=== PATIENT | female | born 1930 | race Caucasian/White ===

== ENCOUNTER 2016-10-13 12:02 | Day surgery (SDC) | payer OTHER ==
[~2016-10-13] VITALS: Ht 147.3 cm; Wt 52.0 kg
[~2016-10-13 12:02] MED LIST: ADVAIR 250/501 DISK IH; ATIVAN0.5 MG PO; CATAPRES0.1 MG PO; FOLIC ACID1 MG PO; LEVO-T112 MCG PO; LO-DOSE ASPIRIN81 M2 PO; NORVASC2.5 MG PO; PREDNISONE2.5 MG PO; PRESERVISION A1 EAC2 PO; RENO CAPS SOFTGE1 MG PO; SENOKOT,SENN1 TABLET PO; TOPROL XL25 MG PO; ULTRAM50 MG PO; VENTOLIN HFA18 GM IH; VITAMIN A8000 UNIT PO; ZANTAC150 MG PO; ZYLOPRIM100 MG PO
[2016-10-13 13:05] VITALS: BP 136/58
[2016-10-13 13:19] LABS: CHLORIDE 102 mEq/L (99-109); POTASSIUM 5.1 mEq/L (3.7-5.4); SODIUM 142 mEq/L (136-147)
[2016-10-13 13:20] LABS: GLUCOSE 87 mg/dL (70-99)
[2016-10-13 13:22] LABS: ANION GAP 15 MEQ/L (2-14)
[2016-10-13 13:24] LABS: GFR ESTIMATE (CALCULATED) 8 mL/min/
[2016-10-13 13:25] LABS: UREA NITROGEN (BUN) 55 mg/dL (9-23)
[2016-10-13 14:30] LABS: METH RESISTANT S AUREUS PCR NEGATIVE (NEGATIVE)
[2016-10-13 14:35] LABS: PROBE CHECK PASS; SPECIMEN PROCESSING CONTROL PASS
[2016-10-13 16:27] VITALS: BP 127/62
[2016-10-13 17:00] VITALS: BP 140/74
== END 2016-10-13 17:08 | disposition home or self-care (01) ==
LOC: SDC 12:02
PROVIDERS: Surgery Plastic and Reconstructive Surgery
DX: T81.31XA Disruption of external operation (surgical) wound, not elsewhere classified, initial encounter (principal); I12.0 Hypertensive chronic kidney disease with stage 5 chronic kidney disease or end stage renal disease; J44.9 Chronic obstructive pulmonary disease, unspecified; N18.6 End stage renal disease; J45.909 Unspecified asthma, uncomplicated; Z99.2 Dependence on renal dialysis; K21.9 Gastro-esophageal reflux disease without esophagitis; E03.9 Hypothyroidism, unspecified; M10.9 Gout, unspecified; Z88.0 Allergy status to penicillin; Z79.82 Long term (current) use of aspirin; Z79.899 Other long term (current) drug therapy; Z87.891 Personal history of nicotine dependence
CPT/HCPCS: 80048; 87641; J0690; J3010; J7050

== ENCOUNTER 2017-12-15 09:59 | Inpatient (IN) | payer OTHER ==
[~2017-12-15] VITALS: Ht 149.9 cm; Wt 56.0 kg
[~2017-12-15 09:59] MED LIST changes: -ADVAIR 250/501 DISK IH; +ADVAIR 500/501 DISK IH; -LEVO-T112 MCG PO; +LEVO-T150 MCG PO; +PROAIR RESPICL90 MCG IH; +SENNA8.6 MG PO; -SENOKOT,SENN1 TABLET PO; -VENTOLIN HFA18 GM IH
[2017-12-15 10:48] LABS: COMMENTS - BLOOD GASES +C; DEVICE NC; O2 FLOW 2 L/MIN; SITE RB; TOTAL RESP RATE 28 resp/min
[2017-12-15 10:49] LABS: BICARBONATE 30.6 mEq/L (22-26); CARBOXY HGB 1.9 % (0-5); METHEMOGLOBIN 1.3 % (0-1.5); O2 SATURATION (CALCULATED) 98.7 % (95-99); PCO2 43 mm Hg (35-45); PO2 103 mm Hg (80-100); pH 7.46 (7.35-7.45)
[2017-12-15 10:49] LABS: BASOPHIL (%) 0.5 % (0-1); BASOPHIL COUNT 0.1 K/uL (0-0.1); EOSINOPHIL COUNT 0.4 K/uL (0-0.3); HEMATOCRIT 30.7 % (36.0-46.0); HEMOGLOBIN 9.4 G/DL (11.9-15.5); IMMATURE GRANULOCYTE (%) 0.8 % (0.0-0.7); LYMPHOCYTE (%) 4.2 % (15-42); LYMPHOCYTE COUNT 0.8 K/uL (1.0-2.8); MCH 32.5 PG (29.0-34.0); MCHC 30.6 G/DL (30.0-36.0); MCV 106.2 FL (83-99); MONOCYTE (%) 7.1 % (3-12); MONOCYTE COUNT 1.4 K/uL (0-0.8); NEUTROPHIL (%) 85.4 % (45-76); NEUTROPHIL COUNT 17.1 K/uL (1.8-6.4); PLATELET COUNT 356 K/uL (156-360); RBC DIS.WIDTH-CV 16.5 % (11.8-14.6); RBC DIS.WIDTH-SD 63.1 % (39-53); RED BLOOD COUNT 2.89 M/uL (3.80-5.20)
[2017-12-15 10:50] LABS: BASE EXCESS 6.1 mEq/L (-3 to +3)
[2017-12-15 10:59] LABS: ALBUMIN 3.3 g/dL (3.2-4.8)
[2017-12-15 11:00] LABS: CHLORIDE 99 mEq/L (99-109); POTASSIUM 4.9 mEq/L (3.7-5.4); SODIUM 142 mEq/L (136-147)
[2017-12-15 11:02] LABS: GLUCOSE 122 mg/dL (70-99); TOTAL PROTEIN 6.3 g/dL (6.4-8.3)
[2017-12-15 11:04] LABS: TOTAL BILIRUBIN 0.5 mg/dL (0.0-1.0)
[2017-12-15 11:05] LABS: ALKALINE PHOSPHATASE 126 IU/L (3-129)
[2017-12-15 11:06] LABS: GFR ESTIMATE (CALCULATED) 9 mL/min/
[2017-12-15 11:07] LABS: AST (GOT) 25 IU/L (2-34); UREA NITROGEN (BUN) 42 mg/dL (9-23)
[2017-12-15 11:09] LABS: ALT (GPT) 33 IU/L (3-49); TROP-I INTERPRETATION NEGATIVE; TROPONIN-I 0.06 ng/mL (0.0-0.30)
[2017-12-15] MEDS ORDERED: CELEXA10 MG PO (12:09)
[2017-12-15] MEDS ORDERED: MIRALAX17 GM PO (12:12)
[2017-12-15] MEDS ORDERED: RENVELA800 MG PO (12:13)
[2017-12-15] MEDS ORDERED: VELPHORO500 MG PO (12:14)
[2017-12-15] MEDS ORDERED: TYLENOL325 M2 PO (12:15)
[2017-12-15] MEDS ORDERED: PRILOSEC20 MG PO (12:15)
[2017-12-15] MEDS ORDERED: ALBUTEROL2.5 MG/0.5 IH (12:18)
[2017-12-15] MEDS ORDERED: ENULOSE10 GM/15 M PO (12:20)
[2017-12-15] MEDS ORDERED: FLEET ENEMA EX230 ML PR (12:22)
[2017-12-15 19:00] VITALS: BP 129/71
[2017-12-16] VITALS (7 sets, daily range): BP systolic 129–167; BP diastolic 58–81
[2017-12-16 05:16] LABS: HEMATOCRIT 27.6 % (36.0-46.0); HEMOGLOBIN 8.3 G/DL (11.9-15.5); MCH 32.7 PG (29.0-34.0); MCHC 30.1 G/DL (30.0-36.0); MCV 108.7 FL (83-99); PLATELET COUNT 294 K/uL (156-360); RBC DIS.WIDTH-CV 16.4 % (11.8-14.6); RBC DIS.WIDTH-SD 63.2 % (39-53); RED BLOOD COUNT 2.54 M/uL (3.80-5.20); WHITE BLOOD COUNT 14.9 K/uL (4.1-10.2)
[2017-12-16 05:54] LABS: CHLORIDE 102 MEQ/L (99-109); GLUCOSE 165 mg/dL (70-99); MAGNESIUM 2.4 mg/dl (1.3-2.7); PHOSPHORUS 3.4 mg/dL (2.5-4.9); POTASSIUM 4.9 MEQ/L (3.7-5.4); SODIUM 142 MEQ/L (136-147); UREA NITROGEN (BUN) 21 mg/dL (9-23)
[2017-12-16 05:55] LABS: BASOPHIL (%) 0.3 % (0-1); EOSINOPHIL (%) 0.1 % (0-5); IMMATURE GRANULOCYTE (%) 0.9 % (0.0-0.7); LYMPHOCYTE (%) 2.9 % (15-42); LYMPHOCYTE COUNT 0.4 K/uL (1.0-2.8); MONOCYTE (%) 0.7 % (3-12); MONOCYTE COUNT 0.1 K/uL (0-0.8); NEUTROPHIL (%) 95.1 % (45-76); NEUTROPHIL COUNT 14.1 K/uL (1.8-6.4); PLAT.SUFFICIENCY ADEQUATE
[2017-12-16 06:47] LABS: GFR ESTIMATE (CALCULATED) 16 mL/min/; VANCOMYCIN, TROUGH 9.9 MCG/ML (10-20)
[2017-12-17 05:41] VITALS: BP 169/59
[2017-12-17 05:52] LABS: HEMATOCRIT 28.5 % (36.0-46.0); HEMOGLOBIN 8.7 G/DL (11.9-15.5); MCH 32.5 PG (29.0-34.0); MCHC 30.5 G/DL (30.0-36.0); MCV 106.3 FL (83-99); NRBC (%) 0.1 /100 WBC (0-0); PLATELET COUNT 329 K/uL (156-360); RBC DIS.WIDTH-CV 16.4 % (11.8-14.6); RBC DIS.WIDTH-SD 63.8 % (39-53); RED BLOOD COUNT 2.68 M/uL (3.80-5.20); WHITE BLOOD COUNT 19.6 K/uL (4.1-10.2)
[2017-12-17 06:13] LABS: CHLORIDE 99 MEQ/L (99-109); GLUCOSE 148 mg/dL (70-99); SODIUM 139 MEQ/L (136-147)
[2017-12-17 06:14] LABS: CREATININE 4.3 MG/DL (0.6-1.3); GFR ESTIMATE (CALCULATED) 10 mL/min/; MAGNESIUM 2.9 mg/dl (1.3-2.7); UREA NITROGEN (BUN) 41 mg/dL (9-23)
[2017-12-17 08:00] VITALS: BP 165/77
[2017-12-17 12:00] VITALS: BP 174/82
[2017-12-17 16:00] VITALS: BP 171/79
[2017-12-17 21:00] VITALS: BP 160/75
[2017-12-17 23:45] VITALS: BP 154/68
[2017-12-18 04:52] VITALS: BP 123/54
[2017-12-18 08:08] LABS: HEMATOCRIT 27.6 % (36.0-46.0); HEMOGLOBIN 8.8 G/DL (11.9-15.5); MCH 32.6 PG (29.0-34.0); MCHC 31.9 G/DL (30.0-36.0); MCV 102.2 FL (83-99); NRBC (%) 0.1 /100 WBC (0-0); PLATELET COUNT 371 K/uL (156-360); RBC DIS.WIDTH-CV 16.6 % (11.8-14.6); RBC DIS.WIDTH-SD 61.4 % (39-53); WHITE BLOOD COUNT 17.6 K/uL (4.1-10.2)
[2017-12-18 08:31] LABS: CHLORIDE 97 MEQ/L (99-109); GLUCOSE 168 mg/dL (70-99); POTASSIUM 5.1 MEQ/L (3.7-5.4); SODIUM 135 MEQ/L (136-147)
[2017-12-18 08:32] LABS: CREATININE 5.3 MG/DL (0.6-1.3); GFR ESTIMATE (CALCULATED) 8 mL/min/; MAGNESIUM 2.4 mg/dl (1.3-2.7); UREA NITROGEN (BUN) 62 mg/dL (9-23)
[2017-12-18 18:06] VITALS: BP 133/70
[2017-12-18 19:53] VITALS: BP 143/66
[2017-12-19] VITALS: BP 161/72
[2017-12-19 06:15] VITALS: BP 146/78
[2017-12-19 08:47] VITALS: BP 145/75
[2017-12-19 09:45] LABS: BASOPHIL (%) 0.1 % (0-1); EOSINOPHIL (%) 0 % (0-5); HEMATOCRIT 28.3 % (36.0-46.0); HEMOGLOBIN 8.9 G/DL (11.9-15.5); LYMPHOCYTE (%) 6.6 % (15-42); MCH 32.8 PG (29.0-34.0); MCHC 31.4 G/DL (30.0-36.0); MCV 104.4 FL (83-99); MONOCYTE (%) 5.4 % (3-12); MONOCYTE COUNT 0.8 K/uL (0-0.8); NEUTROPHIL (%) 84.9 % (45-76); NEUTROPHIL COUNT 12.3 K/uL (1.8-6.4); NRBC (%) 0.6 /100 WBC (0-0); PLATELET COUNT 318 K/uL (156-360); RBC DIS.WIDTH-CV 16.9 % (11.8-14.6); RBC DIS.WIDTH-SD 63.3 % (39-53); RED BLOOD COUNT 2.71 M/uL (3.80-5.20); WHITE BLOOD COUNT 14.5 K/uL (4.1-10.2)
[2017-12-19 10:17] LABS: CHLORIDE 98 MEQ/L (99-109); GLUCOSE 222 mg/dL (70-99); MAGNESIUM 2.4 mg/dl (1.3-2.7); SODIUM 141 MEQ/L (136-147); UREA NITROGEN (BUN) 37 mg/dL (9-23)
[2017-12-19 10:18] LABS: CREATININE 3.8 MG/DL (0.6-1.3); GFR ESTIMATE (CALCULATED) 12 mL/min/; POTASSIUM 3.8 MEQ/L (3.7-5.4)
[2017-12-19 13:31] VITALS: BP 150/78
[2017-12-19 15:55] VITALS: BP 119/61
[2017-12-19 19:29] VITALS: BP 148/71
[2017-12-20 00:06] VITALS: BP 151/69
[2017-12-20 04:19] VITALS: BP 146/72
[2017-12-20 08:39] LABS: BASOPHIL (%) 0.2 % (0-1); EOSINOPHIL (%) 0.1 % (0-5); HEMATOCRIT 28.6 % (36.0-46.0); IMMATURE GRANULOCYTE (%) 4.9 % (0.0-0.7); LYMPHOCYTE (%) 5.6 % (15-42); LYMPHOCYTE COUNT 0.9 K/uL (1.0-2.8); MCH 32.5 PG (29.0-34.0); MCHC 31.5 G/DL (30.0-36.0); MCV 103.2 FL (83-99); MONOCYTE (%) 8.3 % (3-12); MONOCYTE COUNT 1.4 K/uL (0-0.8); NEUTROPHIL (%) 80.9 % (45-76); NEUTROPHIL COUNT 13.4 K/uL (1.8-6.4); NRBC (%) 0.8 /100 WBC (0-0); PLATELET COUNT 294 K/uL (156-360); RBC DIS.WIDTH-CV 16.6 % (11.8-14.6); RBC DIS.WIDTH-SD 62.1 % (39-53); RED BLOOD COUNT 2.77 M/uL (3.80-5.20); WHITE BLOOD COUNT 16.5 K/uL (4.1-10.2)
[2017-12-20 09:03] LABS: ALBUMIN 3.8 G/DL (3.2-4.8); CHLORIDE 99 MEQ/L (99-109); POTASSIUM 3.9 MEQ/L (3.7-5.4); SODIUM 139 MEQ/L (136-147)
[2017-12-20 09:09] LABS: GFR ESTIMATE (CALCULATED) 9 mL/min/; GLUCOSE 206 mg/dL (70-99); PHOSPHORUS 3.2 mg/dL (2.5-4.9)
[2017-12-20 09:10] LABS: UREA NITROGEN (BUN) 57 mg/dL (9-23)
[2017-12-20 12:14] VITALS: BP 134/66
== END 2017-12-20 15:58 | disposition home or self-care (01) | DRG 871 ==
LOC: EME 09:59 → 4EAST 14:29 → EDOF 14:29 → ENRESERV 14:31 → 4EAST 18:53 → ENRESERV 12-19 11:13 → CANRESERV 12-19 11:13 → ENPENDDIS 12-20 → 4EAST 12-20 15:58
PROVIDERS: Emergency Medicine; Internal Medicine; Internal Medicine Nephrology
PROC: 5A1D70Z Performance of Urinary Filtration, Intermittent, Less than 6 Hours Per Day (ICD-10-PCS; principal; 2017-12-15)
DX: A41.9 Sepsis, unspecified organism (principal); N18.6 End stage renal disease; J81.0 Acute pulmonary edema; J45.31 Mild persistent asthma with (acute) exacerbation; E87.2 Acidosis; F33.9 Major depressive disorder, recurrent, unspecified; I12.0 Hypertensive chronic kidney disease with stage 5 chronic kidney disease or end stage renal disease; Z51.5 Encounter for palliative care; Z66 Do not resuscitate; J44.1 Chronic obstructive pulmonary disease with (acute) exacerbation; R65.20 Severe sepsis without septic shock; J44.0 Chronic obstructive pulmonary disease with (acute) lower respiratory infection; D63.1 Anemia in chronic kidney disease; E03.9 Hypothyroidism, unspecified; E87.70 Fluid overload, unspecified; F41.9 Anxiety disorder, unspecified; J20.9 Acute bronchitis, unspecified; K21.9 Gastro-esophageal reflux disease without esophagitis; I48.91 Unspecified atrial fibrillation; R09.02 Hypoxemia; I95.9 Hypotension, unspecified; J84.10 Pulmonary fibrosis, unspecified; Z99.3 Dependence on wheelchair; Z99.2 Dependence on renal dialysis; Z88.0 Allergy status to penicillin; Z87.891 Personal history of nicotine dependence
CPT/HCPCS: 36600; 70450; 71045; 80048; 80053; 80069; 80202; 81003; 82948; 83605; 83735; 84100; 84145 90; 84484; 85025; 85027; 87040; 87070; 87205; 87449; 92610 GN; 93005; 93306; 93970; 94640; 94799; 99281; 99285; J0456; J0692; J1644; J1956; J2920; J2930; J3370; J7512; P9047

== ENCOUNTER 2018-01-14 14:01 | Emergency (ER) | payer OTHER ==
[~2018-01-14] VITALS: Ht 147.3 cm; Wt 55.9 kg
[~2018-01-14 14:01] MED LIST changes: +ALBUTEROL2.5 MG/0.5 IH; +CELEXA10 MG PO; +ENULOSE10 GM/15 M PO; +FLEET ENEMA EX230 ML PR; +MIRALAX17 GM PO; +PRILOSEC20 MG PO; +RENVELA800 MG PO; +TYLENOL325 M2 PO; +VELPHORO500 MG PO
[2018-01-14 15:31] VITALS: BP 159/72
== END 2018-01-14 15:34 | disposition home or self-care (01) ==
LOC: EME 14:01
DX: S93.402A Sprain of unspecified ligament of left ankle, initial encounter (principal); X58.XXXA Exposure to other specified factors, initial encounter; M81.0 Age-related osteoporosis without current pathological fracture; Z99.3 Dependence on wheelchair; I13.0 Hypertensive heart and chronic kidney disease with heart failure and stage 1 through stage 4 chronic kidney disease, or unspecified chronic kidney disease; I50.9 Heart failure, unspecified; N18.9 Chronic kidney disease, unspecified; Z99.2 Dependence on renal dialysis; K21.9 Gastro-esophageal reflux disease without esophagitis; J45.909 Unspecified asthma, uncomplicated; F32.9 Major depressive disorder, single episode, unspecified; F41.9 Anxiety disorder, unspecified; Z79.82 Long term (current) use of aspirin
CPT/HCPCS: 73610; 99281; 99284